=== PATIENT | male | born 1980 | race Caucasian/White ===

== ENCOUNTER 2022-10-25 12:26 | Emergency (ER) | payer OTHER, SELFPAY ==
--- NOTE | 2022-10-25 12:26 | ED.EAR ---
HPI - Ear Problem General Chief complaint: Ear Stated complaint: Lt Ear Irritation Time Seen by Provider: 10/25/22 12:26 Source: patient Mode of arrival: ambulatory Limitations: no limitations History of Present Illness HPI Narrative: Alexis is a 42-year-old male patient presenting to the clinic today with complaints of feeling as though his left ear is clogged up and having some mild pain. He reports he went swimming Wednesday night not when this started. He denies any fever or chills. Patient is leaving on a plane for work in 2-1/2 hours. Related Data Allergies Allergy/AdvReac Type Severity Reaction Status Date / Time No Known Allergies Allergy Verified 10/25/22 12:34 Review of Systems Review of Systems: Pertinent positives per HPI. Patient denies any fever, chills, rash, headache, visual changes, dizziness, cough, runny nose, sore throat, shortness of breath, chest pain, palpitations, nausea, vomiting, diarrhea, constipation, abdominal pain, or any urinary issues. PMFSH Comments At the time of my signature, I reviewed and agree with the nursing past medical, surgical, social, and family history. There is no relevant family history pertinent to the patient complaint. Exam Narrative: General: Well-developed, well nourished, in no apparent distress Head: Normocephalic, atraumatic Eyes: Pupils equally round and reactive to light bilaterally, EOM intact, sclera and conjunctive clear, no discharge, lids normal Ears: Right TMs intact and clear, left TM intact, bulging, mild redness, right ear canals clear, left ear canal impacted with cerumen-ear irrigation performed and was successful, no drainage, grossly hearing normal. Nose: Nares patent, clear discharge, no inflammation, no sinus tenderness. Mouth: Oropharynx without lesions or masses, good dentition, MMM. Neck: Supple, trachea midline, no enlargement of anterior or posterior cervical nodes, no thyroid masses or goiter palpable. Cardio: Regular rate and rhythm, s1 and s2 normal, no murmur appreciated. Resp: Clear to auscultation bilaterally anteriorly and posteriorly, no rhonchi, rales, wheezing or rubs Course Course Emergency Course: Portions of this record may have been created with voice recognition software. Level of Care: Express Care Visit Vital Signs Vital signs: Vital Signs Temperature 36.2 C L 10/25/22 12:35 Pulse Rate 71 10/25/22 12:35 Respiratory Rate 16 10/25/22 12:35 Blood Pressure 128/74 10/25/22 12:35 Pulse Oximetry 99 10/25/22 12:35 Oxygen Delivery Room Air 10/25/22 12:35 Temperature 36.2 C L 10/25/22 12:35 Pulse Rate 71 10/25/22 12:35 Respiratory Rate 16 10/25/22 12:35 Blood Pressure 128/74 10/25/22 12:35 Pulse Oximetry 99 10/25/22 12:35 Oxygen Delivery Room Air 10/25/22 12:35 Vital signs reviewed Procedures Ear Wax Removal Left Ear: Ear Wax Removal Date: 10/25/22 Results: Re-examined: cerumen removed completely TM Examination: TM(s) erythematous Ear Canal Exam: atraumatic Patient Tolerated Procedure: well Complications: no problems Technique: ear canal irrigated Additional Comments: Verbal consent obtained for ear irrigation. Risk and benefits explained and patient voiced understanding. Ear irrigation performed using an elephant ear and spray water bottle. Mixture of 1/2 peroxide 1/2 water used to irrigate left ear canal. Large amount cerumen impaction cleared and TM visualized with redness and bulging. Grossly hearing normal. Patient tolerated procedure well Medical Decision Making MDM Narrative Medical decision making narrative: At the time of visit patient is resting comfortably on exam table. Irrigation was performed using half peroxide/half warm water. Irrigation was successful. Patient has left otitis media. Prescription for amoxicillin was sent to the pharmacy and supportive measures were discussed with the patient he voiced u
[2022-10-25 12:35] VITALS: BP 128/74; PULSE 71; RESP 16; TEMP 36.2; O2SAT 99
== END 2022-10-25 12:47 | disposition home or self-care (01) ==
PROVIDERS: Emergency Provider Nurse Practitioner Family
DX: H66.92 Otitis media, unspecified, left ear (principal); H61.22 Impacted cerumen, left ear
CPT/HCPCS: 69209; 99213; G0463